=== PATIENT | female | born 1990 | race Caucasian/White ===

== ENCOUNTER 2024-11-28 09:14 | Day surgery (SDC) | payer BC ==
[2024-11-28 09:36] VITALS: BMI 27.7
[2024-11-28 11:56] VITALS: RESP 16; TEMP 97.7
[2024-11-28 11:59] VITALS: BP 117/74; PULSE 76
== END 2024-11-28 11:59 | disposition home or self-care (01) ==
LOC: FECT 09:14
PROVIDERS: ATTEND Student in an Organized Health Care Education/Training Program
PROC: GZB4ZZZ Other Electroconvulsive Therapy (ICD-10-PCS; principal; 2024-11-28 10:52)
DX: F32.A Depression, unspecified (principal)
CPT/HCPCS: 90870; 94760

== ENCOUNTER 2024-11-29 07:26 | Day surgery (SDC) | payer BC ==
[2024-11-29 07:39] VITALS: BMI 27.7
[2024-11-29] MEDS ORDERED: KETAMINE HCL 100 MG/ML - 5ML VIAL ONE (08:43)
[2024-11-29 11:25] VITALS: BP 121/79; PULSE 72; RESP 18; TEMP 97.2
== END 2024-11-29 10:33 | disposition home or self-care (01) ==
LOC: FECT 07:26
PROVIDERS: ATTEND Psychiatry & Neurology Psychiatry
PROC: GZB4ZZZ Other Electroconvulsive Therapy (ICD-10-PCS; principal; 2024-11-29 09:10)
DX: F33.2 Major depressive disorder, recurrent severe without psychotic features (principal)
CPT/HCPCS: 81025; 90870; 94760

== ENCOUNTER 2024-12-05 08:09 | Day surgery (SDC) | payer BC ==
[2024-12-03 08:32] VITALS: BMI 27.7
[2024-12-05 10:54] VITALS: BP 114/72; PULSE 78; RESP 16; TEMP 97.8
== END 2024-12-05 11:08 | disposition home or self-care (01) ==
LOC: FECT 08:09
PROVIDERS: ATTEND Student in an Organized Health Care Education/Training Program
PROC: GZB4ZZZ Other Electroconvulsive Therapy (ICD-10-PCS; principal; 2024-12-05 09:59)
DX: F33.2 Major depressive disorder, recurrent severe without psychotic features (principal)
CPT/HCPCS: 90870; 94760